=== PATIENT | female | born 1955 ===

== ENCOUNTER 2023-07-20 09:02 | Day surgery (SDC) | payer MEDICARE, BC ==
[~2023-07-20 09:02] MED LIST: Acetaminophen 325 MG Tab PO PRN; Acetaminophen/Codeine 300-30 MG Tab PO PRN; Cataract Ophth Solution EYELF ONE; Moxifloxacin 0.5% Ophth Soln 3 ML Bottle EYELF ONE; Ondansetron 4 MG/2 ML SDV IVPUSH PRN; Phenylephrine 10% Ophth Soln 5 ML Bot EYELF PRN; Povidone-Iodine 5% Sterile Ophth Soln 30 ML Bottle EYELF ONE; Proparacaine 0.5% Ophth Soln 15 ML Bottle EYELF ONE; Sodium Chloride 0.9% 10 ML Syringe FLUSH PRN; Timolol Maleate 0.5% Ophth Soln 5 ML Bottle EYELF ONE; Tropicamide 1% Ophth Soln 15 ML Bottle EYELF ONE
[2023-07-20] MEDS ORDERED: Proparacaine 0.5% Ophth Soln 15 ML Bottle EYELF ONE (10:17)
[2023-07-20] MEDS ORDERED: Povidone-Iodine 5% Sterile Ophth Soln 30 ML Bottle EYELF ONE (10:18)
[2023-07-20] MEDS ORDERED: Tobramycin 0.3% Ophth Oint 3.5 GM Tube EYELF ONE (10:18)
[2023-07-20] MEDS ORDERED: Apraclonidine 0.5% Ophth Soln 5 ML Bot EYELF ONE (10:18)
[2023-07-20] MEDS ORDERED: Dexamethasone/Tobramycin 0.1-0.3% Ophth Oint 3.5 GM Tube EYELF ONE (10:20)
[2023-07-20] MEDS ORDERED: Lidocaine 1% 30 ML SDV ONE (10:20)
[2023-07-20] MEDS ORDERED: Balanced Salt Solution Ophth Irrig 500 ML Bottle IOCULAR ONE (10:24)
[2023-07-20] MEDS ORDERED: Vancomycin 500 MG SDV EYELF ONE (10:24)
[2023-07-20] MEDS ORDERED: Chondroitin Sulfate/Hyaluronate Sodium Ophth Inj 0.5 ML Syringe IOCULAR ONE (10:25)
[2023-07-20] MEDS ORDERED: Acetylcholine 20 MG/2 ML Intraocular Inj Kit IOCULAR ONE (10:33)
== END 2023-07-20 11:42 | disposition home or self-care (01) ==
LOC: DL.SDS 09:02
PROVIDERS: ATTEND Ophthalmology
DX: H26.20 Unspecified complicated cataract (principal); M81.0 Age-related osteoporosis without current pathological fracture; G43.909 Migraine, unspecified, not intractable, without status migrainosus; E78.5 Hyperlipidemia, unspecified; F41.9 Anxiety disorder, unspecified; Z79.899 Other long term (current) drug therapy; Z88.0 Allergy status to penicillin; Z88.2 Allergy status to sulfonamides; Z88.8 Allergy status to other drugs, medicaments and biological substances
CPT/HCPCS: 00142; A9270-GY; J3370; J3490; V2788-GY

== ENCOUNTER 2023-08-10 08:54 | Day surgery (SDC) | payer MEDICARE, BC ==
[~2023-08-10 08:54] MED LIST changes: -Acetaminophen 325 MG Tab PO PRN; -Acetaminophen/Codeine 300-30 MG Tab PO PRN; -Cataract Ophth Solution EYELF ONE; -Moxifloxacin 0.5% Ophth Soln 3 ML Bottle EYELF ONE; -Ondansetron 4 MG/2 ML SDV IVPUSH PRN; -Phenylephrine 10% Ophth Soln 5 ML Bot EYELF PRN; -Povidone-Iodine 5% Sterile Ophth Soln 30 ML Bottle EYELF ONE; -Proparacaine 0.5% Ophth Soln 15 ML Bottle EYELF ONE; -Timolol Maleate 0.5% Ophth Soln 5 ML Bottle EYELF ONE; -Tropicamide 1% Ophth Soln 15 ML Bottle EYELF ONE
[2023-08-10] MEDS ORDERED: Moxifloxacin 0.5% Ophth Soln 3 ML Bottle EYERT ONE (09:00)
[2023-08-10] MEDS ORDERED: Cataract Ophth Solution EYERT ONE (09:00)
[2023-08-10] MEDS ORDERED: Phenylephrine 10% Ophth Soln 5 ML Bot EYERT PRN (09:00)
[2023-08-10] MEDS ORDERED: Acetaminophen 325 MG Tab PO PRN (09:00)
[2023-08-10] MEDS ORDERED: Timolol Maleate 0.5% Ophth Soln 5 ML Bottle EYERT ONE (09:00)
[2023-08-10] MEDS ORDERED: Ondansetron 4 MG/2 ML SDV IVPUSH PRN (09:00)
[2023-08-10] MEDS ORDERED: Proparacaine 0.5% Ophth Soln 15 ML Bottle EYERT ONE ×2 (09:00→09:51)
[2023-08-10] MEDS ORDERED: Acetaminophen/Codeine 300-30 MG Tab PO PRN (09:00)
[2023-08-10] MEDS ORDERED: Tropicamide 1% Ophth Soln 15 ML Bottle EYERT ONE (09:00)
[2023-08-10] MEDS ORDERED: Povidone-Iodine 5% Sterile Ophth Soln 30 ML Bottle EYERT ONE ×2 (09:00→09:52)
[2023-08-10] MEDS ORDERED: Apraclonidine 0.5% Ophth Soln 5 ML Bot EYERT ONE (09:53)
[2023-08-10] MEDS ORDERED: Dexamethasone/Neomycin/Polymyxin B Ophth Oint 3.5 GM Tube EYERT ONE (09:53)
[2023-08-10] MEDS ORDERED: Lidocaine 1% 30 ML SDV INJECT ONE (09:54)
[2023-08-10] MEDS ORDERED: Balanced Salt Solution Ophth Irrig 500 ML Bottle IOCULAR ONE (09:54)
[2023-08-10] MEDS ORDERED: Vancomycin 500 MG SDV EYERT ONE (09:55)
[2023-08-10] MEDS ORDERED: Chondroitin Sulfate/Hyaluronate Sodium Ophth Inj 0.75 ML Syringe EYERT ONE ×2 (09:56→09:58)
[2023-08-10] MEDS ORDERED: Carbachol 0.01% Intraocular 1.5 ML Vial EYERT ONE (09:59)
[2023-08-10] MEDS ORDERED: Acetaminophen/oxyCODONE 325-5 MG Tab PO ONE (11:17)
[2023-08-10] MEDS ORDERED: Ibuprofen 200 MG Tab PO ONE (11:18)
== END 2023-08-10 11:25 | disposition home or self-care (01) ==
LOC: DL.SDS 08:54
PROVIDERS: ATTEND Ophthalmology
DX: H25.811 Combined forms of age-related cataract, right eye (principal); F41.9 Anxiety disorder, unspecified; E78.5 Hyperlipidemia, unspecified; K21.9 Gastro-esophageal reflux disease without esophagitis; T78.3XXA Angioneurotic edema, initial encounter; Z87.891 Personal history of nicotine dependence; Z79.899 Other long term (current) drug therapy; Z88.2 Allergy status to sulfonamides; Z88.0 Allergy status to penicillin; Z88.1 Allergy status to other antibiotic agents
CPT/HCPCS: 00142; A9270-GY; J3370; J3490; V2632